=== PATIENT | female | born 1995 | race Asian ===

== ENCOUNTER 2018-03-30 14:12 | Inpatient (IN) | payer MEDICAID, SELFPAY ==
[2018-03-30] MEDS ORDERED: Promethazine HCl 25 MG/ML VIAL IM PRN (14:23)
[2018-03-30] MEDS ORDERED: Ondansetron PF 4 MG/2 ML Vial IVP PRN (14:23)
[2018-03-30] MEDS ORDERED: Acetaminophen 500 MG TAB PO PRN (14:23)
[2018-03-30] MEDS ORDERED: Lactated Ringer's 1,000 ML IV SCH (14:30)
--- NOTE | 2018-03-30 14:38 | PDOC.FPROB ---
FMR OB H&P: HPI - History of Present Illness Chief Complaint: direct admit History of Present Illness: 23 yo @ 35.1 wks GA by LMP & 15 wk US presenting as a direct admit due to nonreassuring testing. Pt has a history of GDM A2 and has been getting weekly BPPs. Today, pt had a BPP of 6/8 at [facility] and lost points for an KILO of 3.51cm. Pt also has size < dates and concern for poor maternal weight gain ( total of 13 lbs throughout ). Pt endorses FM and denies ctx, VB, LOF. She notes fasting blood sugars usually run 80-100s and postprandial have ranged from 120 - 200s depending what she eats. Normal breakfast entails small amount of yogurt. Lunch and dinner meals include protein and vegetables. Primary Care Physician: Dr. Debbi Adam at Clinic FMR OB H&P: Current - Care : 2 Para: 0010 Gestational age: 35.1 Due date: 05/03/2018 Dating Criteria: LMP & 15 wk sono Total weight gain: 13 lbs - OB Labs Blood type: O RH: positive Antibody Screen: negative HIV: negative RPR: negative HepBsAg: negative Rubella: immune Gonorrhea: negative 1 hour gtt: 170 3 hour GTT: 77, 194, 157, 135 GBS: unknown FMR OB H&P: History - Past Medical History PMH: None - OB History OB History: Elective via D&C 2017 - Surgical History Sx History: D&C 2017 - Family History Family History: Positive for HTN & DM FMR OB H&P: Medications - Current Home Medications: Medication Instructions Recorded Confirmed Type Vitamin 1 tablet PO DAILY 03/30/18 03/30/18 History metFORMIN [Glucophage] 500 mg PO BID-WM 03/30/18 03/30/18 History FMR OB H&P: ROS - Review of Systems General: reports: weight/appetite/sleep changes. denies: fever/chills Eyes: denies: vision changes, scotomas ENT: denies: nasal congestion, rhinorrhea Cardiovascular: denies: chest pain, palpitation Respiratory: denies: cough, congestion, shortness of breath Gastrointestinal: denies: abdominal pain Genitourinary (Female): denies: dysuria, vaginal bleeding, contractions Neurologic: denies: headache FMR OB H&P: Vital Signs - Maternal Vital signs: BP 109/68 HR 71 RR 16 O2 96% on RA Temp 97.8 F oral FMR OB H&P: Physical Exam - Physical Exam General: NAD, awake, alert and oriented HEENT: normocephalic and atraumatic, grossly normal vision, grossly normal hearing Heart: RRR, normal S1/S2 General: CTAB, no respiratory distress, good air movement Abdomen: gravid, non-tender Musculoskeletal: normal gait and station Neurological: no focal deficit Skin: no jaundice Lymphatic: no unusual bruising or bleeding Psychiatric: intact recent and remote memory, good judgement and insight FMR OB H&P: A/P - Problem List (1) Viable in third trimester Current Visit: No Status: Acute Code(s): Z34.93 - ENCNTR FOR SUPRVSN OF NORMAL PREG, UNSP, THIRD TRIMESTER (2) GDM, class A2 Current Visit: No Status: Acute Code(s): O24.419 - GESTATIONAL DIABETES MELLITUS IN , UNSP CONTROL (3) Oligohydramnios in third trimester Current Visit: Yes Status: Acute Code(s): O41.03X0 - OLIGOHYDRAMNIOS, THIRD TRIMESTER, NOT APPLICABLE OR UNSP Qualifiers: Fetus number: single or unspecified fetus Qualified Code(s): O41.03X0 - Oligohydramnios, third trimester, not applicable or unspecified (4) Low maternal weight gain Current Visit: No Status: Acute Code(s): O26.10 - LOW WEIGHT GAIN IN , UNSPECIFIED TRIMESTER Qualifiers: Trimester: third trimester Qualified Code(s): O26.13 - Low weight gain in , third trimester Disposition: Will admit under observation, resuscitate with IV fluids and educate mother regarding dietary intake. [employer] consult placed. Obtain TSH, A1c, fasting and 2 hour postprandial accuchecks. Continue metformin and PNV. Will plan on repeat BPP after IVF resuscitation in AM. If pt's KILO does not improve, will have to consider medically indicated induction of labor around 36-37 weeks due to oligohydramnios. Discussion: Date/Time: 03/30/18 8079 This H&P was discussed with Dr. Boudreaux who agrees with the above documentation and plan. Signature: Capo Riley MD PGY3 Addendum - Attending - Attending Attestation Date/Time: 03/30/18 3375 I personally evaluated the patient and discussed the management with Dr. Riley I agree with the History, Examination, Assessment and Plan documented above with any addition or exceptions noted below. 23 yo @ 35.1 wks GA by LMP & 15 wk US. Direct admission for 07/14 BPP today, off for oligohydramnios. complicated by poor weight gain (13 lbs with starting BMI of 15.8), poor weight gain and A2GDM on metformin 1. Oligohydramnios -NST q shift -IV hydrate tonight -Repeat BPP tomorrow -If KILO is not improved tomorrow after repeat BPP would give steroids for anticipated delivery at 36-37w -Dopplers WNL today at [facility] 2. A2GDM -continue metformin -Check A1c -Check glucose fasting and 2 hrs post prandially 3. Poor weight gain -Recommended weight gain for this patient is 28-40lbs -Calorie count to assess for adequacy of diet -Will check TSH -Dietitian to see 4. Intrauterine at 35w1d -GBS sent today
[2018-03-30] MEDS ORDERED: Dextrose 5% in Water 1,000 ML IV PRN (14:47)
[2018-03-30] MEDS ORDERED: Dextrose 50% Abboject 50 ML SYRINGE SLOW IVP PRN (14:47)
[2018-03-30] MEDS ORDERED: Sodium Chloride 0.9% 10 ML ONE (15:26)
[2018-03-30 16:02] VITALS: BMI 17.5
[2018-03-30 16:16] LABS: Hemoglobin A1c 4.4 % (4.0-6.0)
[2018-03-30] MEDS: Lactated Ringer's 1,000 ML IV SCH ×2 (16:49→18:08)
[2018-03-30] MEDS: metFORMIN 500 MG TAB PO SCH (18:08)
[2018-03-31] MEDS: Lactated Ringer's 1,000 ML IV SCH ×3 (01:53→18:17)
--- NOTE | 2018-03-31 05:39 | PDOC.FM ---
- Subjective Subjective: Pt states she did well overnight. She denies nausea vomiting, SOB, headache, changes in vision, contractions, LOF, vaginal bleeding, or abdominal pain. She reports movement. She also complains of right tibial pain that has been going on for a few weeks. The pain comes and goes and is worse with standing. - Objective MAR Reviewed: Yes Vital Signs & Weight: Vital Signs (12 hours) Temp Pulse Resp BP BP Pulse Ox 03/31/18 00:26 98.0 F 79 16 94/59 L 99 03/30/18 19:40 97.8 F 72 18 97/58 L 97 Weight Weight 46.312 kg Phys Exam - Physical Examination Constitutional: NAD HEENT: moist MMs Neck: no JVD, full ROM Respiratory: no wheezing, no rales, no rhonchi, clear to auscultation bilateral Cardiovascular: RRR, no significant murmur, no rub Gastrointestinal: soft, non-tender, no distention, positive bowel sounds Gravid Musculoskeletal: no edema, pulses present No pain with palpation of right tibia Neurological: non-focal, moves all 4 limbs Psychiatric: normal affect, A&O x 3 Skin: cap refill <2 seconds Dx/Plan (1) Anorexia Code(s): R63.0 - ANOREXIA Status: Acute (2) Oligohydramnios in third trimester Code(s): O41.03X0 - OLIGOHYDRAMNIOS, THIRD TRIMESTER, NOT APPLICABLE OR UNSP Status: Acute Qualifiers: Fetus number: single or unspecified fetus Qualified Code(s): O41.03X0 - Oligohydramnios, third trimester, not applicable or unspecified (3) GDM, class A2 Code(s): O24.419 - GESTATIONAL DIABETES MELLITUS IN , UNSP CONTROL Status: Acute (4) Low maternal weight gain Code(s): O26.10 - LOW WEIGHT GAIN IN , UNSPECIFIED TRIMESTER Status: Acute Qualifiers: Trimester: third trimester Qualified Code(s): O26.13 - Low weight gain in , third trimester (5) Viable in third trimester Code(s): Z34.93 - ENCNTR FOR SUPRVSN OF NORMAL PREG, UNSP, THIRD TRIMESTER Status: Acute - Plan Plan: This is a 23 yo at 35.2 wk by LMP/15wk US Oligohydramnios -Initial KILO was 3.51cm -Rehydrate with IVFs -Repeat BPP this morning -Qshift NST -As it stands, pt should be medically induced at 39wks due to A2GDM, however if patient continues to have low KILO, an earlier induction may be warranted -03/23/18 pt had KILO of 7.02cm -12/12/17 US showed normal visualized anatomy, posterior placenta, male -03/30/18 US shows normal kidney, bladder, and stomach anatomy Third trimester sIUP -Pending GBS -NST at 1730 on 03/30 shows reactive NST, FHT baseline in the 140s, moderate variability, accels present, no decels, no contractions -NST at 2233 on 03/30 shows reactive NST, FHT baseline in the 120s, moderate variability, accels present, no decels, no contractions Anorexia in -BMI 17.5 -Concern for poor diet -Pending dietary consult today, will appreciate their recommendations -Right tibial bone pain, with BMI, consider adding additional calcium supplementation A2GDM -Continue metformin -A1C is 4.4
--- NOTE | 2018-03-31 09:37 | ULT ---
NONSTRESS BIOPHYSICAL PROFILE: HISTORY: Low amniotic fluid index in doctor's office yesterday. COMPARISON: None. TECHNIQUE: Nonstress biophysical profile is performed. FINDINGS: Single intrauterine gestation, vertex presentation. Limited evaluation of the cervix due to shadowin g. heart tones of 124 b.p.m. Amniotic fluid index is 5.3 cm. NONSTRESS BIOPHYSICAL PROFILE: tone 2. breathing 2. movement. Amniotic fluid 2. Total score 8 out of 8. IMPRESSION: Oligohydramnios. Nonstress biophysical profile 8 out of 8. POS: [facility]
[2018-03-31] MEDS: Prenatal Vitamin 1 TAB PO SCH (10:27)
[2018-03-31] MEDS: metFORMIN 500 MG TAB PO SCH ×2 (10:27→20:33)
[2018-03-31] MEDS ORDERED: Dexamethasone 4 mg/ml Vial SLOW IVP SCH (12:00)
[2018-03-31] MEDS: Dexamethasone 4 mg/ml Vial SLOW IVP SCH (20:32)
[2018-04-01] MEDS: Dexamethasone 4 mg/ml Vial SLOW IVP SCH ×3 (01:31→19:43)
[2018-04-01] MEDS: Lactated Ringer's 1,000 ML IV SCH ×4 (01:31→19:49)
--- NOTE | 2018-04-01 05:40 | PDOC.FM ---
- Subjective Subjective: Pt states she did well overnight. She reports the dietitian came by yesterday to talk with her. She denies contractions, LOF, dyspnea, chest pain, vaginal bleeding, abdominal pain, or dysuria. She reports FM. She also reports an numbness/weird feeling in her body that started after the steroids. - Objective MAR Reviewed: Yes Vital Signs & Weight: Vital Signs (12 hours) Temp Pulse Resp BP Pulse Ox 04/01/18 01:39 97.7 F 78 16 104/66 98 03/31/18 20:34 98.1 F 85 16 106/71 97 Weight Admit Weight 46.312 kg Weight 46.312 kg I&O: 03/30/18 03/31/18 04/01/18 06:59 06:59 06:59 Intake Total 2184 1500 Balance 2184 1500 Phys Exam - Physical Examination Constitutional: NAD HEENT: moist MMs Neck: supple, full ROM Respiratory: no wheezing, no rales, clear to auscultation bilateral Cardiovascular: RRR, no significant murmur, no rub Gastrointestinal: soft, non-tender, no distention, positive bowel sounds gravid Musculoskeletal: no edema, pulses present Neurological: non-focal, normal sensation, moves all 4 limbs Psychiatric: normal affect, A&O x 3 Skin: no rash, normal turgor, cap refill <2 seconds Dx/Plan (1) Anorexia Code(s): R63.0 - ANOREXIA Status: Acute (2) Oligohydramnios in third trimester Code(s): O41.03X0 - OLIGOHYDRAMNIOS, THIRD TRIMESTER, NOT APPLICABLE OR UNSP Status: Acute Qualifiers: Fetus number: single or unspecified fetus Qualified Code(s): O41.03X0 - Oligohydramnios, third trimester, not applicable or unspecified (3) GDM, class A2 Code(s): O24.419 - GESTATIONAL DIABETES MELLITUS IN , UNSP CONTROL Status: Acute (4) Low maternal weight gain Code(s): O26.10 - LOW WEIGHT GAIN IN , UNSPECIFIED TRIMESTER Status: Acute Qualifiers: Trimester: third trimester Qualified Code(s): O26.13 - Low weight gain in , third trimester (5) Viable in third trimester Code(s): Z34.93 - ENCNTR FOR SUPRVSN OF NORMAL PREG, UNSP, THIRD TRIMESTER Status: Acute - Plan Plan: This is a 23 yo at 35.3 wk by LMP/15wk US Oligohydramnios -Initial KILO was 3.51cm -Rehydrate with IVFs -Repeat BPP non-stress is 09/13, KILO 5.2 -Qshift NST -As it stands, pt should be medically induced at 39wks due to A2GDM, however if patient continues to have low KILO, an earlier induction may be warranted -03/23/18 pt had KILO of 7.02cm -12/12/17 US showed normal visualized anatomy, posterior placenta, male -03/30/18 US shows normal kidney, bladder, and stomach anatomy -Starting Decadron (03/31) IVP due to risk of premature labor/induction Third trimester sIUP -Pending GBS -NST at 1125 03/31 shows a reactive NST, no contractions Anorexia in -BMI 17.5 -Concern for poor diet -Pending dietary consult today, will appreciate their recommendations -Calorie counting -Right tibial bone pain, with BMI, consider adding additional calcium supplementation A2GDM -Continue metformin -A1C is 4.4
[2018-04-01] MEDS: Prenatal Vitamin 1 TAB PO SCH (08:19)
--- NOTE | 2018-04-01 11:23 | PDOC.OBLPN ---
FMR OB Labor PN: Subj - Interval History Hospital Day: 3 Chief Complaint: oligo Indentification: FMR OB Labor PN: Obj - Urine output I&O: 03/31/18 04/01/18 04/02/18 06:59 06:59 06:59 Intake Total 2184 3743 Balance 2184 3743 FMR OB Labor PN: Exam - Physical Exam General: NAD, awake, alert and oriented HEENT: normocephalic and atraumatic, PERRLA Heart: RRR, normal S1/S2, no murmurs/rubs/gallops, pulses present General: CTAB, no respiratory distress, good air movement, no wheezing Abdomen: soft, gravid Musculoskeletal: normal gait and station Neurological: cranial nerves II through XII intact, no focal deficit Skin: no rash, good tugor - Pelvic Exam SVE: closed/thick/high/posterior FMR OB Labor PN: Data - Labs Lab results: Laboratory Results - last 24 hr 03/31/18 03/31/18 04/01/18 12:33 17:18 01:38 POC Glucose 87 105 120 H 04/01/18 05:36 POC Glucose 113 H FMR OB Labor PN: A/P - Problem List (1) Oligohydramnios in third trimester Current Visit: Yes Status: Acute Code(s): O41.03X0 - OLIGOHYDRAMNIOS, THIRD TRIMESTER, NOT APPLICABLE OR UNSP Qualifiers: Fetus number: single or unspecified fetus Qualified Code(s): O41.03X0 - Oligohydramnios, third trimester, not applicable or unspecified (2) GDM, class A2 Current Visit: No Status: Acute Code(s): O24.419 - GESTATIONAL DIABETES MELLITUS IN , UNSP CONTROL (3) Low maternal weight gain Current Visit: No Status: Acute Code(s): O26.10 - LOW WEIGHT GAIN IN , UNSPECIFIED TRIMESTER Qualifiers: Trimester: third trimester Qualified Code(s): O26.13 - Low weight gain in , third trimester (4) Viable in third trimester Current Visit: No Status: Acute Code(s): Z34.93 - ENCNTR FOR SUPRVSN OF NORMAL PREG, UNSP, THIRD TRIMESTER Discussion: Date/Time: 04/01/18 1121 This is a 23 yo at 35.3 wk by LMP/15wk US # Oligohydramnios -Initial KILO was 3.51cm-> repeat 2.1cm -Repeat BPP non-stress is 07/14, vertex - has had 3 doses of dexamethesone, 4th will be tonight -03/23/18 pt had KILO of 7.02cm -12/12/17 US showed normal visualized anatomy, posterior placenta, male -03/30/18 US shows normal kidney, bladder, and stomach anatomy -Starting Decadron (03/31) IVP due to risk of premature labor/induction # GBS unknown - sent 03/29 - will start on Ppx # Anorexia in -BMI 17.5 -monitoring intake closley # A2GDM -Continue metformin -A1C is 4.4 This plan was discussed with Dr. Baeza and Dr. Boucher who agree with the above documentation and plan. Addendum - Attending - Attending Attestation Date/Time: 04/01/18 7582 I personally evaluated the patient and discussed the management with Dr. Diaz. I agree with the History, Examination, Assessment and Plan documented above with any addition or exceptions noted below. 23 yo AF at 35 weeks with oligohydramnios and EFW at 20 percentile. Has had dexamethasone for FLM x 4 doses. Repeat BPP this AM showed KILO of 3. Agree with plan to proceed with induction and delivery.
[2018-04-01] MEDS: metFORMIN 500 MG TAB PO SCH ×2 (11:36→19:37)
--- NOTE | 2018-04-01 12:23 | ULT ---
NONSTRESS BIOPHYSICAL PROFILE: HISTORY: Amniotic fluid index. COMPARISON: 03/31/2018. TECHNIQUE: Nonstress biophysical profile is performed. FINDINGS: Single intrauterine gestation. heart tones with a rate of 143 b.p.m. Cephalic presentation. Amniotic fluid index is 2.1. Previous amniotic fluid index was 5.3. Nonstress BIPHYSICAL PROFILE: tone 2. breathing 2. movement 2. Amniotic fluid 0. Total score 6 out of 8. IMPRESSION: Nonstress biophysical profile score 6 out of 8. Results of the study discussed with Caitie, the patient's nurse, 04/01/2018 at 10:39 a.m. CODE CR POS: [facility]
[2018-04-01] MEDS ORDERED: Ibuprofen 800 MG TAB PO PRN (13:56)
[2018-04-01] MEDS ORDERED: Promethazine HCl 25 MG/ML VIAL IM PRN (13:56)
[2018-04-01] MEDS ORDERED: Lidocaine 1% (PF) 30 ML VIAL SC PRN (13:56)
[2018-04-01] MEDS ORDERED: Misoprostol 100 MCG TAB VAG SCH ×2 (13:56)
[2018-04-01] MEDS ORDERED: Ondansetron PF 4 MG/2 ML Vial IVP PRN (13:56)
[2018-04-01] MEDS ORDERED: NS w/ Oxytocin 10 units 500 ML IV SCH (13:56)
[2018-04-01] MEDS ORDERED: Penicillin G Potassium 5 MILL.UNITS in Sodium Chloride 0.9% 100 ML IVPB SCH (13:56)
[2018-04-01 15:01] LABS: Hemoglobin 12.7 g/dL (12.0-16.0); Mean Corpuscular HGB CONC 33.9 g/dL (32.0-36.0); Mean Corpuscular Hemoglobin 34.5 pg (27.0-31.0); Mean Platelet Volume 8.6 fL (7.4-10.4); Platelet Count 124 thou/uL (130-400); Red Blood Cell (RBC) Count 3.67 mill/uL (4.20-5.40); White Blood Cell (WBC) Count 12.8 thou/uL (4.8-10.8)
[2018-04-01 15:42] LABS: Hep B Surf Ag Non-Reactive S/CO (NonReactive)
[2018-04-01] MEDS ORDERED: Penicillin G 2.5 MILL.units 2.5 MILL.UNITS in Premix Bag 1 BAG IVPB SCH (16:00)
[2018-04-01 16:01] LABS: Syphilis Antibody Nonreactive (Nonreactive); Syphilis Antibody Index 0.05 S/CO (<1.00 Non-Reactive)
--- NOTE | 2018-04-01 21:40 | PDOC.LDPN ---
Labor & Delivery Progress Note - Subjective Subjective: comfortable - Objective Vital signs reviewed and normal: yes General: NAD Uterine fundus: non tender FHT: category 1 [place] contractions every: 2-3min Plan: continue plan of care -: This is a 23 yo at 35.3 wk by LMP/15wk US sIUP, pre-term -/+1 -CTX 2-3 min -CAT I -Pit started at 1900 @ 8 -continue with management of care, recheck in 4 hours Oligohydramnios -Initial KILO was 3.51cm-> repeat 2.1cm -Repeat BPP non-stress is 07/14, vertex -03/23/18 pt had KILO of 7.02cm -12/12/17 US showed normal visualized anatomy, posterior placenta, male -03/30/18 US shows normal kidney, bladder, and stomach anatomy -Received decadron x4 IVP due to risk of premature labor/induction GBS unknown - sent 03/29 - will start on Ppx Anorexia in -BMI 17.5 -monitoring intake closely A2GDM -Continue metformin -A1C is 4.4 This plan was discussed with Dr. Baeza and Dr. Boucher who agree with the above documentation and plan.
[2018-04-01] MEDS ORDERED: Fentanyl 4 mcg/Bup 0.1% Cadd 100 ML ONE (23:28)
--- NOTE | 2018-04-02 00:29 | PDOC.LDPN ---
Labor & Delivery Progress Note - Subjective Subjective: comfortable, vaginal pressure - Objective Vital signs reviewed and normal: yes General: NAD Dilation: 4 Effacement: 90% (80) Station: 1+ FHT: category 1 [place] contractions every: 150/mod/accels Plan: continue plan of care -: This is a 23 yo at 35.3 wk by LMP/15wk US sIUP, pre-term, latent labor -/+1 -CTX 2-3 min -CAT I -Pit at @ 12 -continue with current management of care Oligohydramnios -Initial KILO was 3.51cm-> repeat 2.1cm -Repeat BPP non-stress is 07/14, vertex -03/23/18 pt had KILO of 7.02cm -12/12/17 US showed normal visualized anatomy, posterior placenta, male -03/30/18 US shows normal kidney, bladder, and stomach anatomy -Received decadron x4 IVP due to risk of premature labor/induction GBS unknown - sent 03/29 - will start on Ppx Anorexia in -BMI 17.5 -monitoring intake closely A2GDM -Continue metformin -A1C is 4.4
[2018-04-02] MEDS: Lactated Ringer's 1,000 ML IV SCH (03:14)
--- NOTE | 2018-04-02 05:12 | PDOC.LDPN ---
Labor & Delivery Progress Note - Subjective Subjective: comfortable, loss of fluid - Objective Abnormal vital signs: AVSS General: NAD, resting Uterine fundus: non tender Dilation: 7 Effacement: 75% (80) Station: 1+ FHT: category 1, early decelerations [place] contractions every: 2-3min AROM: clear fluid Plan: continue plan of care -: This is a 23 yo at 35.3 wk by LMP/15wk US sIUP, pre-term, active labor - -CTX 2-3 min -CAT I, early decels -Pit at @ 12 -continue with current management of care, recheck in2 hours Oligohydramnios -Initial KILO was 3.51cm-> repeat 2.1cm -Repeat BPP non-stress is 07/14, vertex -03/23/18 pt had KILO of 7.02cm -12/12/17 US showed normal visualized anatomy, posterior placenta, male -03/30/18 US shows normal kidney, bladder, and stomach anatomy -Received decadron x4 IVP due to risk of premature labor/induction GBS unknown - sent 03/29 - continue ppx Anorexia in -BMI 17.5 -monitoring intake closely A2GDM -Continue metformin & accuchecks -A1C is 4.4
[2018-04-02] MEDS: NS / Oxytocin 40 units/1000ml 1,000 ML IV PRN ×2 (07:57→10:15)
[2018-04-02] MEDS: metFORMIN 500 MG TAB PO SCH (08:38)
[2018-04-02] MEDS: Prenatal Vitamin 1 TAB PO SCH (09:02)
--- NOTE | 2018-04-02 11:12 | PDOC.OPDEL ---
OB Operative/Delivery Note Delivery Dr/Surgeon: Lewis Schwarz, and Baljit Pre-Delivery Diagnosis: medically indicated induction Procedure/Post Delivery Dx: spontaneous vaginal delivery Weeks gestation: 35 (.3) Anesthesia: epidural - Findings A Sex: male Weight: 2.233 kg - 1 min: 8 - 5 min: 9 - Additional Findings/Plan Placenta delivered: spontaneous Repaired Obstetrical Laceration: 4th degree Estimated blood loss: qbl 541 Compilations/Other Findings: This is 23 yo F @ 35.3wks who delivered a viable M at 0755 on . During active pushing by patient baby was noted to have consistent decelerations with slow recovery, slow progression was determined to be caused by soft tissue obstruction, the decision was made to intervene first by cutting a midline episiotomy, afterwards a vigorous male was delivered over the perineum in the occipitoposterior position. Anterior Shoulder and then remainder of the body delivered. Nuchal cordx1. The head was held down and mouth and nares were bulb suctioned. Cord clamped and cut and cord blood collected. Placenta delivered intact in the [place] presentation with a 3 vessel cord noted. Fundal massage was performed and the fundus was firm. The cervix and vagina were inspected and a 4th degree laceration was noted and repaired with 3.0 vicryl in the usual fashion with good approximation and hemostasis 5ml lidocaine was injected at site. Rectum was inspected and found to be free of defect or suture remnant, anal wink noted. went to NICU in good condition for routine care 2/2 status. Apgars were 8/9 at 1 & 5 minutes, respectively. Patient tolerated delivery well and went to after routine recovery/care. Post delivery plan: routine recovery
[2018-04-02] MEDS ORDERED: Benzocaine/Menthol 20-0.5% 60 ML CAN TOP PRN (11:31)
[2018-04-02] MEDS ORDERED: diphenhydrAMINE 25 MG CAP PO PRN (11:31)
[2018-04-02] MEDS ORDERED: NS / Oxytocin 40 units/1000ml 1,000 ML IV SCH (11:31)
[2018-04-02] MEDS ORDERED: Lanolin Ointment 7 GM TUBE TOP PRN (11:31)
[2018-04-02] MEDS ORDERED: Ondansetron PF 4 MG/2 ML Vial IVP PRN (11:31)
[2018-04-02] MEDS ORDERED: Adacel (T-DAP) 0.5 ML SYRINGE IM ONE (11:31)
[2018-04-02] MEDS: Ferrous Sulfate 325 MG TAB PO SCH (17:31)
[2018-04-02] MEDS: Ibuprofen 800 MG TAB PO SCH ×2 (17:32→23:29)
[2018-04-02] MEDS: Docusate Calcium (SURFAK) 240 MG CAP PO SCH (23:29)
[2018-04-03 07:00] LABS: Hemoglobin 10.9 g/dL (12.0-16.0); Mean Corpuscular HGB CONC 33.6 g/dL (32.0-36.0); Mean Corpuscular Hemoglobin 34.7 pg (27.0-31.0); Mean Platelet Volume 8.6 fL (7.4-10.4); Platelet Count 139 thou/uL (130-400); RBC Distribution Width 11.9 % (11.5-14.5); Red Blood Cell (RBC) Count 3.15 mill/uL (4.20-5.40); White Blood Cell (WBC) Count 9.9 thou/uL (4.8-10.8)
--- NOTE | 2018-04-03 07:23 | PDOC.PP ---
Post Progress Note Post Day #: 1 Subjective: Patient doing well this AM. She is not having any difficulty urinating, but she has yet to have BM. She endorses a mild amount of pain near anus. Patient states lochia is minimal. She is attempting to breastfeed and pump milk. She states that she does not have much milk in yet, but she will keep trying. I encouraged her to do so. Vital Signs (12 hours) Temp Pulse Resp BP Pulse Ox 04/02/18 20:00 98 04/02/18 19:50 97.7 F 79 16 98/58 L 99 Weight Admit Weight 46.312 kg Weight 46.312 kg - Physical Examination General: NAD Cardiovascular: RRR Respiratory: clear to auscultation bilaterally, non-labored breathing Abdominal: lochia (minimal), no distention, appropriately TTP Fundus firm & at: below umbilicus Neurological: no gross focal deficits Psychiatric: A&Ox3, normal affect Result Diagrams: 04/03/18 06:29 Additional Labs: Post Labs Blood Type O POSITIVE 04/01/18 14:30 Hep Bs Antigen Non-Reactive S/CO (NonReactive) 04/01/18 14:30 (1) Term delivered Code(s): O80 - ENCOUNTER FOR FULL-TERM UNCOMPLICATED DELIVERY Status: Acute (2) (spontaneous vaginal delivery) Code(s): O80 - ENCOUNTER FOR FULL-TERM UNCOMPLICATED DELIVERY Status: Acute (3) Fourth degree laceration of perineum during delivery, Code(s): O70.3 - FOURTH DEGREE PERINEAL LACERATION DURING DELIVERY Status: Acute - Assessment/Plan 23 year old delivered SLIMA M at 35.3 wks on 04/02 at 7:55 AM via . 1. Routine PP care - Mild amount of perineal pain and pain near anus - No BM yet, DOUGIE stool softeners - , EBM; internal controls consultant has been notified - Uncertain of contraception at this time 2. 4th degree perineal laceration s/p repair - Assessed repair this AM; looks intact without any evidence of bleeding - Pain well controlled with ibuprofen - Assess again prior to d/c - DOUGIE stool softeners 3. A2 GDM - ACHS accuchecks ordered this AM - Will not continue metformin at this time - Patient will need 2h GTT 6 wks PP - HgA1c on admission during this hospitalization was only 4.4% 4. Poor maternal weight gain with BMI 17.5 - Regular diet - Encourage patient to eat several meals per day - Explain the importance of proper nutrition, particularly when it comes to ; will need additional 500 kcal/day Dispo: Stable. Routine PP care. Patient doing well. Infant in NICU due to prematurity. Anticipate patient staying for full 48 hours and then possible Bed and Breakfast after that point. Debbi Adam, DO PGY-2
[2018-04-03] MEDS: Ibuprofen 800 MG TAB PO SCH ×3 (08:02→22:25)
[2018-04-03] MEDS: Docusate Calcium (SURFAK) 240 MG CAP PO SCH ×2 (08:02→22:25)
[2018-04-03] MEDS: Prenatal Vitamin 1 TAB PO SCH (08:02)
[2018-04-03] MEDS: Ferrous Sulfate 325 MG TAB PO SCH (08:03)
[2018-04-03] MEDS: Milk Of Magnesia 30 ML UDCUP PO PRN (08:13)
[2018-04-04] MEDS: Ibuprofen 800 MG TAB PO SCH ×3 (05:48→22:16)
--- NOTE | 2018-04-04 08:29 | PDOC.PP ---
Post Progress Note Post Day #: 2 Subjective: Patient doing well. Pain well controlled with ibuprofen. Patient has had BM which was soft and non-painful. Patient has been ambulating, but does endorse the pain in perineum is worse when she is walking. Patient doing well. She continues to pump and breastfeed. PO intake tolerated: yes Flatus: yes Ambulation: yes Vital Signs (12 hours) Temp Pulse Resp BP Pulse Ox 04/04/18 08:18 97.7 F 64 20 104/69 98 Weight Admit Weight 46.312 kg Weight 46.312 kg - Physical Examination General: NAD Cardiovascular: RRR Respiratory: non-labored breathing Abdominal: + bowel sounds, lochia (minimal), no distention, appropriately TTP Perineum: Incision clean, dry, intact. No dehiscense. Deviation from normal: Poor rectal tone, but no defects noted on rectal exam. Psychiatric: A&Ox3, normal affect Result Diagrams: 04/03/18 06:29 Additional Labs: Post Labs Blood Type O POSITIVE 04/01/18 14:30 Hep Bs Antigen Non-Reactive S/CO (NonReactive) 04/01/18 14:30 (1) Term delivered Code(s): O80 - ENCOUNTER FOR FULL-TERM UNCOMPLICATED DELIVERY Status: Acute (2) (spontaneous vaginal delivery) Code(s): O80 - ENCOUNTER FOR FULL-TERM UNCOMPLICATED DELIVERY Status: Acute (3) Fourth degree laceration of perineum during delivery, Code(s): O70.3 - FOURTH DEGREE PERINEAL LACERATION DURING DELIVERY Status: Acute - Assessment/Plan 23 year old delivered SLIMA M infant at 35.3 wks on 04/02 at 7:55 AM via . 1. Routine PP care - Mild amount of perineal pain and pain near anus, particularly when walking, but patient states it is bearable and does not want any more pain medication - BM x1, soft and non painful; DOUGIE stool softeners - , EBM; treasury consultant has been notified - Uncertain of contraception at this time 2. 4th degree perineal laceration s/p repair - Assessed repair this AM; looks intact without any evidence of bleeding, rectal exam performed, poor rectal tone, but no appreciable defects - Pain well controlled with ibuprofen - Assess again prior to d/c - DOUGIE stool softeners; patient has had soft BM x1 with no incontinence and no reported pain 3. A2 GDM - ACHS accuchecks; BG appears wnl - Will not continue metformin at this time - Patient will need 2h GTT 6 wks PP - HgA1c on admission during this hospitalization was only 4.4% 4. Poor maternal weight gain with BMI 17.5 - Regular diet - Encourage patient to eat several meals per day - Explain the importance of proper nutrition, particularly when it comes to ; will need additional 500 kcal/day Dispo: Stable. Routine PP care. Patient doing well. Infant in NICU due to prematurity. Patient to stay additional night and plan for possible bed and breakfast starting tomorrow. Debbi Adam, DO PGY-2
[2018-04-04] MEDS: Prenatal Vitamin 1 TAB PO SCH (08:35)
[2018-04-04] MEDS: Milk Of Magnesia 30 ML UDCUP PO PRN (08:35)
[2018-04-04] MEDS: Docusate Calcium (SURFAK) 240 MG CAP PO SCH ×3 (08:35→22:19)
[2018-04-04 16:12] LABS: Folate,Hemolysate 548.6 ng/mL (Not Estab.); RBC Folate Test Component 1770 ng/mL (>498)
[2018-04-05] MEDS: Ibuprofen 800 MG TAB PO SCH ×4 (06:32→23:45)
[2018-04-05] MEDS: Prenatal Vitamin 1 TAB PO SCH (09:18)
[2018-04-05] MEDS: Docusate Calcium (SURFAK) 240 MG CAP PO SCH ×2 (09:19→23:45)
--- NOTE | 2018-04-05 10:04 | PDOC.PP ---
Post Progress Note Post Day #: 3 Subjective: Patient generally doing well. She states that her pain is well controlled, but she is still having some difficulty with pain when ambulating. She does not desire to be on anything other than ibuprofen at this time. She has not had another BM but denies loss of bowel function. She is passing flatus. Patient is tolerating PO. She continues to breast feed and pump. PO intake tolerated: yes Flatus: yes Ambulation: yes Vital Signs (12 hours) Temp Pulse Resp BP BP Pulse Ox 04/05/18 08:10 97.8 F 57 L 20 123/77 99 04/05/18 04:05 77 16 118/77 98 04/05/18 01:15 72 18 115/67 97 Weight Admit Weight 46.312 kg Weight 46.312 kg - Physical Examination General: NAD Cardiovascular: RRR Respiratory: non-labored breathing Abdominal: + bowel sounds, lochia (minimal), appropriately TTP Fundus firm & at: below umbilicus Perineum: repair intact, no bleeding or dehiscense Deviation from normal: Rectal tone improved from exam yesterday, no defects Psychiatric: A&Ox3, normal affect Result Diagrams: 04/03/18 06:29 Additional Labs: Post Labs Blood Type O POSITIVE 04/01/18 14:30 Hep Bs Antigen Non-Reactive S/CO (NonReactive) 04/01/18 14:30 (1) Term delivered Code(s): O80 - ENCOUNTER FOR FULL-TERM UNCOMPLICATED DELIVERY Status: Acute (2) (spontaneous vaginal delivery) Code(s): O80 - ENCOUNTER FOR FULL-TERM UNCOMPLICATED DELIVERY Status: Acute (3) Fourth degree laceration of perineum during delivery, Code(s): O70.3 - FOURTH DEGREE PERINEAL LACERATION DURING DELIVERY Status: Acute - Assessment/Plan 23 year old delivered PAGA M at 35.3 wks on 04/02 at 7:55 AM via . 1. Routine PP care - Continue ambulation - BM x1, soft and non painful; DOUGIE stool softeners - , EBM 2. 4th degree perineal laceration s/p repair - Assessed repair again this AM; looks intact without any evidence of bleeding, rectal exam performed, rectal tone improved, no defects appreciated - Pain fairly well controlled with ibuprofen - DOUGIE stool softeners; patient has had soft BM x1 with no incontinence and no reported pain 3. A2 GDM - ACHS accuchecks; BG appears wnl, will stop accuchecks today. - Will not continue metformin at this time - Patient will need 2h GTT 6 wks PP - HgA1c on admission during this hospitalization was only 4.4% 4. Poor maternal weight gain with BMI 17.5 - Regular diet - Encourage patient to eat several meals per day - Explained the importance of proper nutrition, particularly when it comes to ; will need additional 500 kcal/day Dispo: Stable. Plan to keep additional night if insurance will allow. No rooms for B&B. [facility] currently occupied. Debbi Adam, DO PGY-2
[2018-04-06] MEDS ORDERED: Acetaminophen/Codeine 30-300mg Tablet PO SCH (00:15)
--- NOTE | 2018-04-06 07:19 | PDOC.PP ---
Post Progress Note Post Day #: 4 Subjective: pain well controlled at this time, denies bleeding PO intake tolerated: yes Flatus: yes Ambulation: yes Vital Signs (12 hours) Temp Pulse Resp BP Pulse Ox 04/06/18 04:30 74 16 123/83 97 04/05/18 23:05 97.7 F 82 18 134/94 H 97 Weight Admit Weight 46.312 kg Weight 46.312 kg - Physical Examination General: NAD Cardiovascular: no m/r/g Respiratory: clear to auscultation bilaterally Abdominal: + bowel sounds, appropriately TTP Skin: no rash Neurological: no gross focal deficits Psychiatric: normal affect Result Diagrams: 04/03/18 06:29 Additional Labs: Post Labs Blood Type O POSITIVE 04/01/18 14:30 Hep Bs Antigen Non-Reactive S/CO (NonReactive) 04/01/18 14:30 (1) Anorexia Code(s): R63.0 - ANOREXIA Status: Acute (2) Fourth degree laceration of perineum during delivery, Code(s): O70.3 - FOURTH DEGREE PERINEAL LACERATION DURING DELIVERY Status: Acute (3) Term delivered Code(s): O80 - ENCOUNTER FOR FULL-TERM UNCOMPLICATED DELIVERY Status: Acute (4) Low maternal weight gain Code(s): O26.10 - LOW WEIGHT GAIN IN , UNSPECIFIED TRIMESTER Status: Acute Qualifiers: Trimester: third trimester Qualified Code(s): O26.13 - Low weight gain in , third trimester - Assessment/Plan 23 year old delivered FERMIN M infant at 35.3 wks on 04/02 at 7:55 AM via . 1. Routine PP care - Continue ambulation - BMs soft and non painful; DOUGIE stool softeners - , EBM 2. 4th degree perineal laceration s/p repair - Repair assessment: intact without any evidence of bleeding, rectal exam performed, rectal tone improved, no defects appreciated - Pain fairly well controlled with ibuprofen - DOUGIE stool softeners; patient has had soft BM with no incontinence and no reported pain 3. A2 GDM - ACHS accuchecks; BG appears wnl, DC accuchecks. - Will not continue metformin at this time - Patient will need 2h GTT 6 wks PP - HgA1c on admission during this hospitalization was only 4.4% 4. Poor maternal weight gain with BMI 17.5 - Regular diet - Encourage patient to eat several meals per day - Explained the importance of proper nutrition, particularly when it comes to ; will need additional 500 kcal/day Dispo: Stable. MD home today
[2018-04-06 07:43] VITALS: BP 124/81; TEMP 98.1
[2018-04-06] MEDS: Prenatal Vitamin 1 TAB PO SCH (08:57)
[2018-04-06] MEDS: Milk Of Magnesia 30 ML UDCUP PO PRN (08:57)
[2018-04-06] MEDS: Docusate Calcium (SURFAK) 240 MG CAP PO SCH (08:58)
[2018-04-06] MEDS: Ibuprofen 800 MG TAB PO SCH ×2 (08:58→14:35)
[2018-04-06] MEDS ORDERED: Acetaminophen/Codeine 30-300mg Tablet PO PRN (11:06)
== END 2018-04-06 15:00 | disposition home or self-care (01) | DRG 768 ==
LOC: L&D 14:48 → OBSVTOIN 14:48 → EDBD 14:48 → 3SE 14:55 → L&D 04-01 14:12 → 3SW 04-02 11:42
PROVIDERS: ADMIT Family Medicine; ATTEND Family Medicine
PROC: 4A1HXCZ Monitoring of Products of Conception, Cardiac Rate, External Approach (ICD-10-PCS; 2018-03-30)
PROC: 4A1HXFZ Monitoring of Products of Conception, Cardiac Rhythm, External Approach (ICD-10-PCS; 2018-03-30)
PROC: 10E0XZZ Delivery of Products of Conception, External Approach (ICD-10-PCS; principal; 2018-04-02)
PROC: 0DQP0ZZ Repair Rectum, Open Approach (ICD-10-PCS; 2018-04-02)
PROC: 0W8NXZZ Division of Female Perineum, External Approach (ICD-10-PCS; 2018-04-02)
DX: O76 Abnormality in fetal heart rate and rhythm complicating labor and delivery (principal); Z37.0 Single live birth; O60.14X0 Preterm labor third trimester with preterm delivery third trimester, not applicable or unspecified; O70.3 Fourth degree perineal laceration during delivery; O41.03X0 Oligohydramnios, third trimester, not applicable or unspecified; Z3A.35 35 weeks gestation of pregnancy; O24.425 Gestational diabetes mellitus in childbirth, controlled by oral hypoglycemic drugs; O26.13 Low weight gain in pregnancy, third trimester; R63.0 Anorexia; O75.89 Other specified complications of labor and delivery; M79.604 Pain in right leg; O69.81X0 Labor and delivery complicated by cord around neck, without compression, not applicable or unspecified
CPT/HCPCS: 36415; 36416; 51702; 59025; 76819; 82607; 82747; 83036; 84443; 85027; 86780; 86850; 86900; 86901; 87081; 87340; 88307; J1100; J2001; J2540; J7050